=== PATIENT | male | born 1990 | race African-American/Black ===

== ENCOUNTER 2024-08-26 07:16 | Emergency (ER) | payer MEDICAID ==
[~2024-08-26] VITALS: Ht 170.2 cm; Wt 97.3 kg
[2024-08-26 08:09] VITALS: BP 116/79; PULSE 69; RESP 17; TEMP 97.8; O2SAT 99
[2024-08-26] MEDS: bupivacaine 0.25%/epinephrine 1:200,000 inj (contains preserv. MDV) IJ ONE (08:09)
[2024-08-26] MEDS: amoxicillin 250mg capsule PO ONE (08:17)
[2024-08-27] MEDS ORDERED: HYDR-3965 PO (02:08)
[2024-08-27] MEDS ORDERED: AMOX-101 PO (17:30)
== END 2024-08-26 08:20 | disposition home or self-care (01) ==
LOC: ER 07:16
DX: K08.89 Other specified disorders of teeth and supporting structures (principal); R51.9 Headache, unspecified; F12.90 Cannabis use, unspecified, uncomplicated; Z91.013 Allergy to seafood
CPT/HCPCS: 99283

== ENCOUNTER 2024-08-27 01:16 | Emergency (ER) | payer MEDICAID ==
[~2024-08-27] VITALS: Ht 170.2 cm; Wt 97.7 kg
[2024-08-27] MEDS: BUPIVAcaine 0.5% W/EPI /PF 10ml vial IJ STA (01:41)
[2024-08-27] MEDS: HYDROcodone/acetaminophen 5mg/325mg tablet PO ONE (02:06)
[2024-08-27] MEDS: penicillin V potassium 500mg tablet PO ONE (02:06)
[2024-08-27] MEDS ORDERED: HYDR-3965 PO (02:08)
[2024-08-27 02:10] VITALS: BP 122/90; PULSE 81; RESP 18; TEMP 98; O2SAT 98
[2024-08-27] MEDS ORDERED: AMOX-101 PO (17:30)
== END 2024-08-27 02:11 | disposition home or self-care (01) ==
LOC: ER 01:16
DX: K08.89 Other specified disorders of teeth and supporting structures (principal); F12.90 Cannabis use, unspecified, uncomplicated; Z91.013 Allergy to seafood
CPT/HCPCS: 64400; 99283; 99284

== ENCOUNTER 2024-10-31 01:20 | Emergency (ER) | payer MEDICAID ==
[~2024-10-31] VITALS: Ht 170.2 cm; Wt 100.0 kg
[2024-10-31 01:22] VITALS: BP 117/77; PULSE 97; RESP 16; TEMP 99; O2SAT 96
== END 2024-10-31 02:09 | disposition left against medical advice (07) ==
LOC: ER 01:21
DX: K08.89 Other specified disorders of teeth and supporting structures (principal); Z53.21 Procedure and treatment not carried out due to patient leaving prior to being seen by health care provider; Z91.013 Allergy to seafood

== ENCOUNTER 2025-01-16 22:22 | Emergency (ER) | payer MEDICAID ==
[~2025-01-16] VITALS: Ht 170.2 cm; Wt 80.0 kg
[2025-01-16 22:32] VITALS: BP 95/50; PULSE 68; RESP 16; TEMP 98.9; O2SAT 95
[2025-01-16 23:01] LABS: BASOPHILS # (AUTO) 0.1 X10'3 (0-0.2); BASOPHILS % (AUTO) 0.9 % (0-1); EOSINOPHILS % (AUTO) 0.4 % (0-6); HEMATOCRIT 46.9 % (42.0-52.0); HEMOGLOBIN 16.1 g/dl (14.0-17.9); LYMPHOCYTES # (AUTO) 1.7 X10'3 (1.1-4.8); LYMPHOCYTES % (AUTO) 27.1 % (21-51); MEAN CORPUSCULAR HEMOGLOBIN 31.2 PG (27.0-31.0); MEAN CORPUSCULAR HGB CONC 34.4 g/dL (33.0-36.5); MEAN CORPUSCULAR VOLUME 90.8 FL (78-98); MEAN PLATELET VOLUME 8.2 FL (7.4-10.4); MONOCYTES # (AUTO) 0.4 X10'3 (0-0.9); MONOCYTES % (AUTO) 7.2 % (2-12); NEUTROPHILS % (AUTO) 64.4 % (42-75); PLATELET COUNT 329 X10'3 (140-440); RED BLOOD COUNT 5.16 X10'6 (4.70-6.10); RED CELL DISTRIBUTION WIDTH 12.6 % (11.5-14.5); WHITE BLOOD COUNT 6.2 X10'3 (4.5-11.0)
[2025-01-16 23:17] LABS: ALANINE AMINOTRANSFERASE 25 U/L (12-78); ALBUMIN 4.1 G/DL (3.4-5.0); ALBUMIN/GLOBULIN RATIO 1.2 (1.1-1.5); ALKALINE PHOSPHATASE 66 IU/L (46-116); ANION GAP 8 (8-16); ASPARTATE AMINO TRANSFERASE 18 U/L (10-37); BILIRUBIN,TOTAL 0.8 MG/DL (0.1-1.0); BLOOD UREA NITROGEN 13 MG/DL (7-18); BUN/CREATININE RATIO 10.6 (10.0-20.0); CALCIUM 9.1 MG/DL (8.5-10.1); CHLORIDE 102 MMOL/L (99-107); CREATININE 1.23 MG/DL (0.60-1.10); GLUCOSE 114 MG/DL (70-104); LIPASE 29 U/L (16-77); POTASSIUM 3.5 MMOL/L (3.5-5.1); SODIUM 141 MMOL/L (135-145); TOTAL CARBON DIOXIDE 30.7 MMOL/L (24-32); TOTAL PROTEIN 7.5 G/DL (6.4-8.2); eCRCL 80 ML/MIN; eGFR 82 ML/MIN
== END 2025-01-17 03:11 | disposition left against medical advice (07) ==
LOC: ER 22:22
DX: R10.9 Unspecified abdominal pain (principal); R11.10 Vomiting, unspecified; Z91.013 Allergy to seafood; Z53.21 Procedure and treatment not carried out due to patient leaving prior to being seen by health care provider
CPT/HCPCS: 36415; 80053; 83690; 85025